=== PATIENT | female | born 1990 | race African-American/Black ===

== ENCOUNTER 2021-06-19 10:56 | Inpatient (IN) | payer BC, SELFPAY ==
[~2021-06-19] VITALS: Ht 170.2 cm; Wt 79.4 kg
[2021-06-19] MEDS ORDERED: LR 1,000 ML IV SCH (22:30)
[2021-06-19] MEDS ORDERED: DINOPROSTONE 10 MG SUPP VG ONE (22:30)
[2021-06-19] MEDS ORDERED: AMPICILLIN SODIUM 2 GM in NS 100 ML IV ONE (22:30)
[2021-06-19] MEDS ORDERED: AMPICILLIN SODIUM 1 GM in NS 50 ML IV SCH (22:30)
[2021-06-19] MEDS ORDERED: NALBUPHINE HCL 10 MG/ML AMP IM PRN (22:30)
[2021-06-19] MEDS ORDERED: TERBUTALINE SULFATE 1 MG/ML VIAL SUBCUT ONE (22:30)
[2021-06-19] MEDS ORDERED: NALBUPHINE HCL 10 MG/ML AMP IVP PRN (22:30)
[2021-06-19 23:18] LABS: BASOPHILS % (AUTO) 0.4 % (0.0-2.0); EOSINOPHILS % (AUTO) 0.5 % (0.0-4.0); HEMATOCRIT 30.3 % (36-48); HEMOGLOBIN 10.2 g/dL (12.0-16.0); LYMPHOCYTES % (AUTO) 23.5 % (20.5-51.5); MEAN CORPUSCULAR HEMOGLOBIN 27 pg (27-31); MEAN CORPUSCULAR HGB CONC 34 % (32-36); MEAN CORPUSCULAR VOLUME 80 fL (79.0-98.0); MONOCYTES # (AUTO) 0.5 K/uL (0.0-1.0); MONOCYTES % (AUTO) 6.2 % (1.7-9.3); NEUTROPHILS # (AUTO) 5.8 K/uL (1.8-7.7); NEUTROPHILS % (AUTO) 69.4 % (40.0-70.0); PLATELET COUNT (AUTO) 151 K/uL (130-430); RED BLOOD CELL COUNT(AUTO) 3.81 MIL/uL (4.2-6.2); RED CELL DISTRIBUTION WIDTH 16.5 % (9.0-15.0); WHITE BLOOD COUNT (AUTO) 8.4 K/uL (4.8-10.8)
[2021-06-20 02:16] VITALS: BP_SYST 104
[2021-06-20] MEDS ORDERED: AMPICILLIN SODIUM 2 GM VIAL ONE (02:45)
[2021-06-20] MEDS ORDERED: AMPICILLIN SODIUM 1 GM in NS 50 ML IV SCH (03:00)
[2021-06-20 03:53] LABS: BILIRUBIN,URINE 1+ (NEGATIVE); BLOOD, URINE NEGATIVE (NEGATIVE); CLARITY/URINE CLEAR (CLEAR); COLOR,URINE YELLOW (YELLOW); GLUCOSE,URINE NEGATIVE (NEGATIVE); KETONES,URINE NEGATIVE (NEGATIVE); LEUKOCYTE ESTERASE ,URINE 2+ (NEGATIVE); NITRITE, URINE NEGATIVE (NEGATIVE); PROTEIN URINE 1+ (NEGATIVE)
[2021-06-20 04:32] LABS: RBC,URINE 0-3 /HPF (0-3)
[2021-06-20 04:33] LABS: BACTERIA,URINE MANY /HPF (None Seen); MUCUS,URINE 1+ /LPF (None Seen)
[2021-06-20] MEDS ORDERED: AMPICILLIN SODIUM 1 GM VIAL ONE (07:17)
[2021-06-20] MEDS ORDERED: ROPIVACAINE HCL/PF 0.2% 200 ML ONE (09:30)
[2021-06-20] MEDS ORDERED: fentaNYL CITRATE/PF 100 MCG/2 ML AMP ONE (09:30)
[2021-06-20] MEDS ORDERED: ePHEDrine sulfate 50 MG/ML VIAL IVP PRN (10:30)
[2021-06-20] MEDS ORDERED: FENT2mCg/mL-ROPIVA0.2%/NS EPID 200 ML EP SCH (10:30)
[2021-06-20] MEDS ORDERED: LR 500 ML IV ONE (10:30)
[2021-06-20] MEDS ORDERED: ONDANSETRON HCL 4 MG/2 ML VIAL IVP PRN (12:30)
[2021-06-20] MEDS ORDERED: OXYTOCIN/0.9 % SODIUM CHLORIDE 1,000 ML IV ONE ×2 (15:42→16:30)
[2021-06-20] MEDS ORDERED: LANOLIN 7 GM OINT. TP PRN (16:30)
[2021-06-20] MEDS ORDERED: HYDROCORTISONE 0.5% CREAM 28.4 GM CREAM.GM. TP PRN (16:30)
[2021-06-20] MEDS ORDERED: OXYCODONE/ACETAMINOPHEN 5-325 TABLET PO PRN (16:30)
[2021-06-20] MEDS ORDERED: METHYLERGONOVINE MALEATE 0.2 MG TABLET PO PRN (16:30)
[2021-06-20] MEDS ORDERED: ANUSOL 1 EA SUPP.RECT (PREPARATION H) RC PRN (16:30)
[2021-06-20] MEDS ORDERED: OXYTOCIN/0.9 % SODIUM CHLORIDE 1,000 ML IV SCH (16:30)
[2021-06-20] MEDS ORDERED: WITCH HAZEL LEAF 1 MED.PAD MED.PAD TP PRN (16:30)
[2021-06-20] MEDS ORDERED: DERMOPLAST SPRAY TP PRN (16:30)
[2021-06-20] MEDS: IBUPROFEN 800 MG TABLET PO PRN (18:17)
[2021-06-20] MEDS: OXYCODONE/ACETAMINOPHEN 5-325 TABLET PO PRN (20:37)
[2021-06-20] MEDS: SENNOSIDES/DOCUSATE SODIUM 1 TAB TABLET(SENOKOT-S) PO SCH (20:38)
[2021-06-20] MEDS ORDERED: TEMAZEPAM 15 MG CAPSULE PO PRN (21:00)
[2021-06-21] MEDS: IBUPROFEN 800 MG TABLET PO PRN ×3 (00:36→22:23)
[2021-06-21] MEDS: OXYCODONE/ACETAMINOPHEN 5-325 TABLET PO PRN ×3 (03:48→17:19)
[2021-06-21] MEDS: DOCUSATE SODIUM 100 MG CAPSULE PO SCH (09:55)
[2021-06-21 10:27] LABS: HEMATOCRIT 30.3 % (36-48); HEMOGLOBIN 10.1 g/dL (12.0-16.0)
[2021-06-21] MEDS: SENNOSIDES/DOCUSATE SODIUM 1 TAB TABLET(SENOKOT-S) PO SCH (23:25)
[2021-06-22] MEDS: IBUPROFEN 800 MG TABLET PO PRN ×3 (00:13→12:18)
[2021-06-22] MEDS: DOCUSATE SODIUM 100 MG CAPSULE PO SCH (09:32)
[2021-06-22] MEDS: OXYCODONE/ACETAMINOPHEN 5-325 TABLET PO PRN (13:32)
== END 2021-06-22 14:45 | disposition home or self-care (01) | DRG 560 ==
LOC: SPU 20:22
PROVIDERS: ADMIT Obstetrics & Gynecology; ATTEND Obstetrics & Gynecology
PROC: 10E0XZZ Delivery of Products of Conception, External Approach (ICD-10-PCS; principal; 2021-06-20)
PROC: 3E0P7VZ Introduction of Hormone into Female Reproductive, Via Natural or Artificial Opening (ICD-10-PCS; 2021-06-20)
PROC: 3E0R3BZ Introduction of Anesthetic Agent into Spinal Canal, Percutaneous Approach (ICD-10-PCS; 2021-06-20)
PROC: 00HU33Z Insertion of Infusion Device into Spinal Canal, Percutaneous Approach (ICD-10-PCS; 2021-06-20)
DX: O69.81X0 Labor and delivery complicated by cord around neck, without compression, not applicable or unspecified (principal); Z37.0 Single live birth; Z20.822 Contact with and (suspected) exposure to COVID-19; Z3A.40 40 weeks gestation of pregnancy
CPT/HCPCS: 36415; 81000; 85018; 85025; 86592; 86886; 86900; 86901; 87086; J0290; J2300; J2405; J2590; J3010